=== PATIENT | male | born 1950 | race Caucasian/White ===

== ENCOUNTER 2021-09-17 16:21 | Emergency (ER) | payer MEDICARE, SELFPAY ==
[2021-09-17 16:22] VITALS: BP 139/70; PULSE 73; RESP 18; TEMP 36.4; O2SAT 98; BMI 27.8
--- NOTE | 2021-09-17 17:21 | EDS_ITS ---
HPI History of Present Illness Chief Complaint: Lower Extremity Injury Narrative Narrative: Patient is a 71-year-old male who states about 1 week ago he injured his left leg. He states he has not thought much of it but is continue to be swollen and bruised so he went to a urgent care today. He states that they had concern that he might have a blood clot based on his asymmetric swelling and recent injury and therefore sent him to the hospital for evaluation. Patient denies any previous history of DVT or PE. He denies any recent surgery travel or hormone use. Patient states he does not have chest pain or shortness of breath but is here for an ultrasound based on his recommendation from the last visit [facility] Medical History (Updated 09/17/21 @ 18:[address] Keith Odell, DO) Diabetes Hypertension Home Medications rivaroxaban [Xarelto DVT-PE Treat 30d Start] See Rx Instructions .ROUTE .COMPLEX #51 tab 09/17/21 [Rx Last Taken Unknown] Allergy/AdvReac Type Severity Reaction Status Date / Time No Known Allergies Allergy Verified 09/17/21 16:24 Social History Smoking Status: Unknown if ever smoked ROS ROS ED Constitutional Constitutional ED: Denies chills or fever(s) ENT ENT ED: Denies sore throat Cardiovascular Cardiovascular: Denies chest pain Respiratory/Chest Respiratory/Chest: Denies cough or dyspnea Gastrointestinal Gastrointestinal: Denies abdominal pain, diarrhea, nausea or vomiting Genitourinary Genitourinary ED: Denies dysuria Musculoskeletal Musculoskeletal: Reports myalgias Integumentary Reports Abrasions; Denies rash Neurologic Neurologic: Denies headache(s) Hematologic/Lymphatic Hematologic/Lymphatic: Denies easy bleeding or easy bruising EXAM Physical Exam Const Vital Signs: 09/17/21 16:22 Temperature 97.6 F L Temperature Source Temporal Pulse Rate 73 Respiratory Rate 18 Blood Pressure 139/70 H Blood Pressure Mean 93 Pulse Ox 98 Oxygen Delivery Method Room Air Positive well nourished and well developed General Appearance ED: well developed Eyes PERRL and EOMs intact bilaterally Neck supple Resp normal respiratory effort and clear to auscultation bilaterally Cardio regular rate and regular rhythm GI normal to inspection, nondistended, normoactive bowel sounds, non-tender, non- distended and no masses Auscultation: normoactive bowel sounds Palpation: soft Extremity Extremity Narrative: Patient has asymmetric swelling of the left lower leg compared to right. There is ecchymosis along the lateral midportion of the calf consistent with recent trauma. Compartments are soft going against compartment syndrome. No secondary changes to suggest infection. Negative Homans' sign bi laterally Neuro oriented x3 and CN's II-XII intact bilaterally Sensorium / Orientation: alert Motor Exam: strength 5/5 throughout Psych mental status grossly normal Skin Skin Narrative: Soft tissue swelling with ecchymosis to the left lower leg as documented above MDM MDM MDM Narrative Medical decision making narrative: Patient presented to the ER with an asymmetrically swollen left leg that occurred after trauma. He had no signs of infection but with the history of endothelial injury and now swelling there is concern for DVT so I did elect to perform a venous duplex. Ultrasound did confirm a left DVT. I discussed the results with the patient and we also discussed possibility of performing blood work and CT scan based on the extensive nature of the DVT. However he is not tachycardic he is not tachypneic he does not have hypoxia or chest pain with inspiration and therefore chance of him having a pulmonary embolus is extremely low. Patient states that he does not want any further testing at this time as chance of him having a blood clot in the lung is low based on his physical exam and therefore will be started on Xarelto and is safe for discharge. Radiography Diagnostic Testing: Clinical Impression(s) from Imaging Studies Venous Duplex 09/17/21 17:26 IMPRESSION: Left femoral, popliteal and posterior tibial deep vein thrombosis. Electronically Signed: Moe Estrada MD ([place]) at 18:15 EST , Service support , Discharge Plan Triage Chief Complaint: Lower Extremity Injury ED Provider: Keith Odell Dx/Rx/DC Orders Clinical Impression: Acute deep vein thrombosis (DVT) of left lower extremity Instructions: ED Deep Vein Thrombosis (DVT) Prescriptions: New Xarelto DVT-PE Treat 30d Start 15 mg (42)- 20 mg (9) tablets,dose pack See Rx Instructions .ROUTE .COMPLEX Qty: 51 RF: 0 Primary Care Provider: Care Physician,No Primary Referrals: Graeme Stubbs MD [STAFF PHYSICIAN] - 1-2 Weeks Care Physician,No Primary [Primary Care Provider] - Disposition Disposition: Home, Self Care
--- NOTE | 2021-09-17 17:26 | US_ITS ---
STUDY: VENOUS DOPPLER ULTRASOUND - LEFT LOWER EXTREMITY REASON FOR EXAM: Male, 71 years old. LT LEG SWELLING TECHNIQUE: Ultrasound evaluation of the deep vein system to include crocker-scale imaging and compression was performed. Crocker-scale imaging and Doppler sonographic evaluation, including duplex spectral analysis and qualitative color flow sonography, was performed. COMPARISON: None. FINDINGS: Common Femoral Vein: Normal compression, spontaneity and augmentation. Normal color Doppler. Common Femoral Vein/Greater Saphenous Junction: Normal compression, spontaneity and augmentation. Normal color Doppler. Femoral Proximal: Intraluminal thrombus with absent flow in compressibility. Femoral Middle: Intraluminal thrombus with absent flow in compressibility. Femoral Distal: Intraluminal thrombus with absent flow in compressibility. Popliteal Vein: Intraluminal thrombus with absent flow in compressibility. Posterior Tibial Vein: Intraluminal thrombus with absent flow in compressibility. Peroneal Vein: Normal compression, spontaneity and augmentation. Normal color Doppler. US/Venous Duplex Imag/Limited/Uni IMPRESSION: Left femoral, popliteal and posterior tibial deep vein thrombosis. Electronically Signed: Moe Estrada MD ([place]) at 18:15 EST , Service support ,
[2021-09-17 18:38] VITALS: BP 141/73; PULSE 83; RESP 14; O2SAT 97
[2021-09-17] MEDS: Rivaroxaban 15 MG Tablet PO (18:41)
== END 2021-09-17 18:47 | disposition home or self-care (01) ==
PROVIDERS: Emergency Provider Emergency Medicine
DX: I82.442 Acute embolism and thrombosis of left tibial vein (principal); E11.9 Type 2 diabetes mellitus without complications; I10 Essential (primary) hypertension; Z79.01 Long term (current) use of anticoagulants
CPT/HCPCS: 93971; 99283

== ENCOUNTER 2022-05-21 14:48 | Emergency (ER) | payer MEDICARE, SELFPAY ==
[2022-05-21 14:49] VITALS: BP 127/81; PULSE 64; RESP 16; TEMP 36.3; O2SAT 98; BMI 35.0
--- NOTE | 2022-05-21 15:14 | ED.VIS.LOWEX ---
HPI History of Present Illness Chief Complaint: Lower Extremity Injury Informant: patient and spouse/S.O. Narrative Narrative: Here for evaluation left knee injury occurring 2 days ago while at event. States hot outside lightheaded falling down to his knees. States water was not provided. Scraped both knees. He is evaluated by paramedics there and was cleared. He has been drinking oral fluids. States left knee has pain there was more significant swelling prior to today he has been icing. He has been able to ambulate. Denies head injuries. Denies any other injuries. Prior similar symptoms: No PFSH PFSH Medical History Diabetes Hypertension Home Medications rivaroxaban 15 mg (42)-20 mg (9) tablets in a starter pack (Xarelto DVT-PE Treatment 30-Day Starter) See Rx Instructions PO .COMPLEX #51 tabs 09/17/21 [Rx Last Taken Unknown] Allergy/AdvReac Type Severity Reaction Status Date / Time No Known Allergies Allergy Verified 05/21/22 14:49 Social History Smoking Status: Never smoker ROS ROS ED Constitutional Constitutional ED: Denies chills, fever(s) or sweats Eyes Eyes: Denies change in vision ENT ENT ED: Denies dysphagia or sore throat Cardiovascular Cardiovascular: Denies chest pain, leg edema, palpitations or racing heartbeat Respiratory/Chest Respiratory/Chest: Denies cough, dyspnea or dyspnea on exertion Gastrointestinal Gastrointestinal: Denies abdominal pain, diarrhea, nausea or vomiting Genitourinary Genitourinary ED: Denies dysuria, hematuria or urinary frequency Musculoskeletal Musculoskeletal: Reports extremity pain and other Details: Left knee pain ; Denies back pain or neck pain Integumentary Denies rash or wounds Neurologic Neurologic: Denies headache(s), paresthesias or weakness EXAM Physical Exam Const Vital Signs: 05/21/22 14:49 Temperature 97.3 F L Temperature Source Temporal Pulse Rate 64 Respiratory Rate 16 Blood Pressure 127/81 H Blood Pressure Mean 96 Pulse Ox 98 Oxygen Delivery Method Room Air Positive well nourished and well developed General Appearance ED: well developed and NAD HEENT Reports moist mucous membranes normocephalic and atraumatic Eyes PERRL, EOMs intact bilaterally and conjunctivae normal General Eye ED: Yes normal appearance of both eyes Neck no lymphadenopathy and supple General: Negative for tenderness Chest Wall Chest: Negative for tenderness Resp normal respiratory effort and normal air movement Effort and Inspection: symmetric chest movement; Negative for respiratory distress Cardio regular rate, regular rhythm and no murmurs Peripheral Pulses: pulses 2+ throughout GI normal to inspection, nondistended, normoactive bowel sounds and non-tender Palpation: Negative for guarding or rebound tenderness present Back/Spine no CVA tenderness and no thoracic nor lumbar tenderness Extremity Extremity Narrative: Left knee: Negative logroll. Knee extensor intact. Mild tenderness at the mid patellar there is an abrasion infrapatellar. No deformities. Negative varus and valgus. No ankle tenderness. Neuro vas intact distally. Right knee: Nontender abrasion infrapatellar. No active bleeding. No deformities. Neuro vas intact distally. Upper extremities: Full range of motion without tenderness. Neuro vas intact distally. General Extremety ED: Negative for edema or tenderness General Extremity: Negative for edema Neuro oriented x3 and no sensory deficits noted Sensorium / Orientation: awake and alert Skin no rashes or lesions noted and no wounds MDM MDM MDM Narrative Medical decision making narrative: Patient with fall with knee injury. Knee extensors are intact. 4 view x-ray of the knee on left side obtained reviewed by myself and read by radiology shows no acute fracture or dislocation. Stephen wrap provided. Continue Tylenol. He will follow-up with his PCP. All questions were answered. Radiography Diagnostic Testing: Clinical Impression(s) from Imaging Studies Knee X-Ray 05/21/22 15:16 IMPRESSION: Normal x-ray examination of the knee. Electronically Signed: Moe Estrada MD ([place]) at 15:30 EDT Reading Location ID and State: [facility] / [place] , Service support , Discharge Plan Triage Chief Complaint: Lower Extremity Injury ED Provider: Issa Cavazos Dx/Rx/DC Orders Clinical Impression: Contusion of knee, left, Abrasion, Fall Instructions: ED Abrasion, ED Contusion, Lower Extremity Prescriptions: No Action Xarelto DVT-PE Treat 30d Start 15 mg (42)- 20 mg (9) tablets,dose pack See Rx Instructions .ROUTE .COMPLEX Qty: 51 0RF Rx Instructions: Take one-15 mg tablet twice daily for 21 days, then one-20 mg tablet once daily; must take with meal/food Primary Care Provider: Marck Bradford Referrals: Marck Bradford MD [Primary Care Provider] - 1 Week Activity Restrictions/Additional Instructions: Left knee x-ray negative. Use Stephen wrap for support continue Tylenol at home. Follow-up with your doctor as needed. Disposition Disposition: Home, Self Care Discharge Date/Time: 05/21/22 15:56
--- NOTE | 2022-05-21 15:16 | RAD_ITS ---
STUDY: X-RAY - LEFT KNEE REASON FOR EXAM: Male, 71 years old. left knee pain and swelling since passing out and falling during [employer] event that was outside in the heat last TECHNIQUE: 4 view(s) of the knee. COMPARISON: None. FINDINGS: Normal visualized distal femur. Normal visualized proximal tibia and fibula. Normal proximal tibiofibular articulation. Normal medial femorotibial compartment. Normal lateral femorotibial compartment. Normal patellofemoral articulation. There is no demonstrated joint effusion. The soft tissue structures are unremarkable. RAD/Knee 4 or More Views IMPRESSION: Normal x-ray examination of the knee. Electronically Signed: Moe Estrada MD ([place]) at 15:30 EDT Reading Location ID and State: [facility] / [place] , Service support ,
== END 2022-05-21 15:56 | disposition home or self-care (01) ==
PROVIDERS: Emergency Provider Emergency Medicine; PCP Internal Medicine; Visit Provider Emergency Medicine
DX: S80.02XA Contusion of left knee, initial encounter (principal); S80.212A Abrasion, left knee, initial encounter; W19.XXXA Unspecified fall, initial encounter
CPT/HCPCS: 73564; 99282